=== PATIENT | female | born 1985 | race Caucasian/White ===

== ENCOUNTER 2016-12-14 11:32 | Emergency (ER) | payer SELFPAY ==
[2016-12-14 12:34] LABS: BASOPHILS 0.3 % (0.0-2.0); EOSINOPHILS 2.7 % (0-7); HEMATOCRIT 26.5 % (36.0-48.0); HEMOGLOBIN 8.6 g/dL (12-16); IMMATURE GRANULOCYTES 1.1 % (0-5); LYMPHOCYTES 17.3 % (15-50); MCH 31.5 pg (26.0-34.0); MCHC 32.5 g/dL (31.0-37.0); MCV 97.1 fL (80.0-100.0); MEAN PLATELET VOLUME 9.3 fL (7.4-10.4); MONOCYTES 8.9 % (2-11); NEUTROPHILS 69.7 % (40-80); PLATELET COUNT 404 10x3/uL (130-400); RBC 2.73 10x6/uL (4.00-5.40); RDW 12.5 % (11.5-14.5); WBC 7.5 10x3/uL (4.8-10.8)
[2016-12-14 12:54] LABS: ALBUMIN 2.7 g/dL (3.4-5.0); ALKALINE PHOSPHATASE 57 U/L (46-116); ALT (SGPT) 49 U/L (10-68); BILIRUBIN - TOTAL 0.77 mg/dL (0.2-1.3); CALC OSMOLALITY 274 mosm/kg (275-300); CALCIUM 8.2 mg/dL (8.5-10.1); CARBON DIOXIDE 27.1 mmol/L (21.0-32.0); CHLORIDE - SERUM 104 mmol/L (98-107); CREATININE - SERUM 0.8 mg/dL (0.6-1.3); GLUCOSE 95 mg/dL (74-106); POTASSIUM - SERUM 3.9 mmol/L (3.5-5.1); PROTEIN - SERUM 6.2 g/dL (6.4-8.2); SODIUM 138 mmol/L (136-145); UREA NITROGEN 9 mg/dL (7-18); eGFR NON AFRICAN AMERICAN 89 mL/min (90-120)
[2016-12-14 14:01] LABS: APPEARANCE HAZY (CLEAR); BACTERIA FEW /hpf (NONE SEEN); BILIRUBIN NEGATIVE (NEGATIVE); COLOR YELLOW (YELLOW); EPITHELIAL CELLS 0-5 /hpf (0-5); GLUCOSE NEGATIVE (NEGATIVE); KETONE NEGATIVE (NEGATIVE); LEUKOCYTE ESTERASE 1+ (NEGATIVE); NITRITE NEGATIVE (NEGATIVE); PROTEIN NEGATIVE (NEGATIVE); RED CELLS - URINE 0-5 /hpf (0-5); SPECIFIC GRAVITY 1.015 (1.005-1.020)
[2016-12-14 14:02] LABS: MUCUS <1+ /lpf (NONE SEEN)
== END 2016-12-14 15:29 | disposition home or self-care (01) ==
LOC: D.ER 11:32
PROVIDERS: Emergency Medicine
DX: K59.00 Constipation, unspecified (principal); D64.9 Anemia, unspecified; F17.200 Nicotine dependence, unspecified, uncomplicated

== ENCOUNTER 2016-12-19 22:06 | Emergency (ER) | payer BC ==
[2016-12-19 23:27] LABS: BASOPHILS 0.2 % (0.0-2.0); EOSINOPHILS 4.4 % (0-7); HEMATOCRIT 28.2 % (36.0-48.0); HEMOGLOBIN 9.1 g/dL (12-16); IMMATURE GRANULOCYTES 0.5 % (0-5); LYMPHOCYTES 19.8 % (15-50); MCH 31.5 pg (26.0-34.0); MCHC 32.3 g/dL (31.0-37.0); MCV 97.6 fL (80.0-100.0); MEAN PLATELET VOLUME 9.1 fL (7.4-10.4); MONOCYTES 6.8 % (2-11); NEUTROPHILS 68.3 % (40-80); RBC 2.89 10x6/uL (4.00-5.40); RDW 12.7 % (11.5-14.5)
[2016-12-19 23:29] LABS: PLATELET COUNT 524 10x3/uL (130-400)
[2016-12-19 23:41] LABS: ALBUMIN 2.8 g/dL (3.4-5.0); ALKALINE PHOSPHATASE 71 U/L (46-116); ALT (SGPT) 32 U/L (10-68); AMYLASE - SERUM 30 U/L (25-115); C-REACTIVE PROTEIN 5.6 mg/dL (0.0-0.9); CALC OSMOLALITY 272 mosm/kg (275-300); CALCIUM 8.6 mg/dL (8.5-10.1); CARBON DIOXIDE 29.1 mmol/L (21.0-32.0); CHLORIDE - SERUM 103 mmol/L (98-107); CREATININE - SERUM 0.9 mg/dL (0.6-1.3); GLUCOSE 96 mg/dL (74-106); LIPASE 138 U/L (73-393); POTASSIUM - SERUM 4.1 mmol/L (3.5-5.1); PROTEIN - SERUM 6.6 g/dL (6.4-8.2); SODIUM 137 mmol/L (136-145); UREA NITROGEN 11 mg/dL (7-18); eGFR NON AFRICAN AMERICAN 78 mL/min (90-120)
== END 2016-12-20 01:45 | disposition home or self-care (01) ==
LOC: D.ER 22:06
PROVIDERS: Family Medicine
DX: Z90.710 Acquired absence of both cervix and uterus (principal); G89.18 Other acute postprocedural pain

== ENCOUNTER 2017-02-06 23:12 | Emergency (ER) | payer BC | END 2017-02-07 00:40 | disposition home or self-care (01) | LOC: D.ER 23:12 | DX: S19.9XXA Unspecified injury of neck, initial encounter (principal); X58.XXXA Exposure to other specified factors, initial encounter; Y93.89 Activity, other specified; Y92.89 Other specified places as the place of occurrence of the external cause; S49.92XA Unspecified injury of left shoulder and upper arm, initial encounter; F17.200 Nicotine dependence, unspecified, uncomplicated ==

== ENCOUNTER 2019-10-31 01:42 | Emergency (ER) | payer OTHER ==
[~2019-10-31] VITALS: Ht 152.4 cm; Wt 70.9 kg
[2019-10-31 01:47] VITALS: Ht 152.4 cm; Wt 70.9 kg
[2019-10-31] MEDS ORDERED: LISINOPRIL-HCT1 EAC4 PO (01:48)
[2019-10-31] MEDS ORDERED: ZPAK PO (01:49)
[2019-10-31] MEDS ORDERED: XANAX0.25 MG PO (01:49)
[2019-10-31] MEDS ORDERED: PROMETHAZINE W473 ML PO (01:50)
[2019-10-31] MEDS ORDERED: KEFLEX500 MG PO (03:11)
[2019-10-31 03:23] VITALS: BP 111/69
== END 2019-10-31 03:15 | disposition home or self-care (01) ==
LOC: D.ER 01:42
DX: J06.9 Acute upper respiratory infection, unspecified (principal); J04.0 Acute laryngitis; J02.9 Acute pharyngitis, unspecified

== ENCOUNTER → 2020-03-03 15:42 | Outpatient (CLI) | payer OTHER ==
[2019-10-31 01:47] VITALS: BMI 30.5
[~2020-03-03 15:42] MED LIST: KEFLEX500 MG PO; LISINOPRIL-HCT1 EAC4 PO; PROMETHAZINE W473 ML PO; XANAX0.25 MG PO; ZPAK PO
== END | disposition home or self-care (01) ==
LOC: D.CT 15:42
PROVIDERS: ATTEND Family Medicine
DX: S09.93XA Unspecified injury of face, initial encounter (principal)

== ENCOUNTER 2020-04-26 23:44 | Emergency (ER) | payer OTHER ==
[~2020-04-26] VITALS: Ht 152.4 cm; Wt 70.0 kg
[2020-04-26 23:50] VITALS: Ht 152.4 cm; Wt 70.0 kg
[2020-04-26] MEDS ORDERED: ESTRACE2 MG (23:54)
[2020-04-27 00:42] LABS: BASOPHILS 0.4 % (0-2); EOSINOPHILS 3.9 % (0-7); HEMATOCRIT 49.9 % (36.0-48.0); HEMOGLOBIN 16.9 g/dL (12-16); IMMATURE GRANULOCYTES 0.5 % (0-5); LYMPHOCYTES 39.3 % (15-50); MCHC 33.9 g/dL (31.0-37.0); MCV 100.4 fL (80.0-100.0); MONOCYTES 6.5 % (2-11); NEUTROPHILS 49.4 % (40-80); RBC 4.97 10x6/uL (4.00-5.40); RDW 12.5 % (11.5-14.5); WBC 9.8 10x3/uL (4.8-10.8)
[2020-04-27 00:45] LABS: UDS - AMPHET NEGATIVE QUAL (NEGATIVE); UDS - BARB NEGATIVE QUAL (NEGATIVE); UDS - BENZO NEGATIVE QUAL (NEGATIVE); UDS - COCAINE NEGATIVE QUAL (NEGATIVE); UDS - OPIATE NEGATIVE QUAL (NEGATIVE); UDS - PCP NEGATIVE QUAL (NEGATIVE); UDS - THC POSITIVE QUAL (NEGATIVE)
[2020-04-27 00:46] LABS: CALC OSMOLALITY 278 mosm/kg (275-300); CALCIUM 8.7 mg/dL (8.5-10.1); CARBON DIOXIDE 26.5 mmol/L (21.0-32.0); CHLORIDE - SERUM 103 mmol/L (98-107); CREATININE - SERUM 0.9 mg/dL (0.6-1.3); GLUCOSE 114 mg/dL (74-106); PLATELET COUNT 288 10x3/uL (130-400); POTASSIUM - SERUM 3.8 mmol/L (3.5-5.1); SODIUM 140 mmol/L (136-145); UREA NITROGEN 10 mg/dL (7-18); eGFR NON AFRICAN AMERICAN 76 mL/min (90-120)
[2020-04-27 00:53] LABS: ALBUMIN 3.8 g/dL (3.4-5.0); ALKALINE PHOSPHATASE 87 U/L (30-120); ALT (SGPT) 88 U/L (10-68); BILIRUBIN - TOTAL 0.14 mg/dL (0.2-1.3); PROTEIN - SERUM 7.9 g/dL (6.4-8.2)
[2020-04-27 01:00] LABS: BILIRUBIN NEGATIVE (NEGATIVE); GLUCOSE NEGATIVE (NEGATIVE); KETONE NEGATIVE (NEGATIVE); NITRITE NEGATIVE (NEGATIVE); UROBILINOGEN NORMAL (NORMAL)
[2020-04-27 02:09] VITALS: BP 131/77
== END 2020-04-27 02:22 | disposition home or self-care (01) ==
LOC: D.ER 23:44
PROVIDERS: Family Medicine
DX: F10.129 Alcohol abuse with intoxication, unspecified (principal); Y90.8 Blood alcohol level of 240 mg/100 ml or more; E86.0 Dehydration; I10 Essential (primary) hypertension; Z72.0 Tobacco use; R06.02 Shortness of breath; R07.9 Chest pain, unspecified; R51 Headache; R55 Syncope and collapse

== ENCOUNTER 2021-02-18 13:05 | Emergency (ER) | payer SELFPAY ==
[~2021-02-18] VITALS: Ht 152.4 cm; Wt 68.2 kg
[~2021-02-18 13:05] MED LIST changes: +ESTRACE2 MG
[2021-02-18 13:24] VITALS: Ht 152.4 cm; Wt 68.2 kg
[2021-02-18 13:44] LABS: EOSINOPHILS 3.3 % (0-7); HEMATOCRIT 49.3 % (36.0-48.0); HEMOGLOBIN 16.7 g/dL (12-16); LYMPHOCYTES 29.2 % (15-50); MCH 34.1 pg (26.0-34.0); MCHC 33.9 g/dL (31.0-37.0); MCV 100.3 fL (80.0-100.0); MEAN PLATELET VOLUME 7.9 fL (7.4-10.4); MONOCYTES 5.3 % (2-11); NEUTROPHILS 61.2 % (40-80); PLATELET COUNT 324 10x3/uL (130-400); RBC 4.91 10x6/uL (4.00-5.40); RDW 13.4 % (11.5-14.5); WBC 9.8 10x3/uL (4.8-10.8)
[2021-02-18 13:50] LABS: CALC OSMOLALITY 271 mosm/kg (275-300); CALCIUM 9.2 mg/dL (8.5-10.1); CARBON DIOXIDE 29.8 mmol/L (21.0-32.0); CHLORIDE - SERUM 100 mmol/L (98-107); CREATININE - SERUM 0.9 mg/dL (0.6-1.3); GLUCOSE 99 mg/dL (74-106); SODIUM 137 mmol/L (136-145); UREA NITROGEN 8 mg/dL (7-18); eGFR NON AFRICAN AMERICAN 76 mL/min (90-120)
[2021-02-18 13:54] LABS: APTT 27.1 SECONDS (22.8-39.4); INR 1.15 (0.85-1.17); PROTIME 13.6 SECONDS (11.6-15.0)
[2021-02-18 14:07] LABS: ALBUMIN 3.8 g/dL (3.4-5.0); ALKALINE PHOSPHATASE 92 U/L (30-120); ALT (SGPT) 211 U/L (10-68); BILIRUBIN - TOTAL 0.38 mg/dL (0.2-1.3); CKMB 0.3 U/L (0.0-3.6); CREATINE KINASE 63 UL (21-215); PRO BNP 157 pg/mL (0-125); PROTEIN - SERUM 7.8 g/dL (6.4-8.2); TROPONIN-I < 0.017 ng/mL (0.000-0.060)
[2021-02-18] MEDS ORDERED: AUGMENTIN 875-11 TAB PO (14:10)
[2021-02-18] MEDS ORDERED: FLUTICASONE PRO16 GM NASAL (14:10)
[2021-02-18] MEDS ORDERED: LISINOPRIL-HCT1 EAC4 PO (14:10)
[2021-02-18 15:21] VITALS: BP 176/108
== END 2021-02-18 15:28 | disposition home or self-care (01) ==
LOC: D.ER 13:05
PROVIDERS: Emergency Medicine
DX: J32.9 Chronic sinusitis, unspecified (principal); R03.0 Elevated blood-pressure reading, without diagnosis of hypertension; J06.9 Acute upper respiratory infection, unspecified; R74.01 Elevation of levels of liver transaminase levels; I10 Essential (primary) hypertension; Z72.0 Tobacco use